=== PATIENT | male | born 2000 | race Caucasian/White ===

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

== ENCOUNTER 2021-03-08 09:13 | Outpatient (CLI) | payer OTHER | END 2021-03-08 09:14 | disposition home or self-care (01) | LOC: MRI 09:13 | PROVIDERS: ATTEND Neurological Surgery | DX: R51.9 Headache, unspecified (principal); M54.16 Radiculopathy, lumbar region | CPT/HCPCS: 70553; 72148 ==